=== PATIENT | female | born 1985 | race Caucasian/White ===

== ENCOUNTER 2023-07-27 10:50 | Inpatient (IN) | payer OTHER ==
[2023-07-27] MEDS: ELECTROLYTE-148 SOLN 500 ML IV ONE (11:30)
[2023-07-27] MEDS: ELECTROLYTE-148 SOLN 1,000 ML IV SCH (12:20)
[2023-07-27 13:02] VITALS: BMI 29.7
[2023-07-27] MEDS ORDERED: OXYTOCIN 30 UNITS in 0.9% NS 30 UNIT/500 ML INFUS.BAG IVPB ONE (13:44)
[2023-07-27] MEDS ORDERED: PHENYLEPHRINE HCL 10 MG/1 ML SINGLE DOSE VIAL ONE (13:45)
[2023-07-27] MEDS ORDERED: FENTANYL CITRATE/PF 50 MCG/ML VIAL ONE (13:45)
[2023-07-27] MEDS ORDERED: morphine SULFATE/PF 1 MG/2 ML (2cc Syringe - QUVA) ONE (13:45)
[2023-07-27] MEDS: CITRIC ACID/SODIUM CITRATE 30 ML UNIT-DOSE CUP PO ONE (13:45)
[2023-07-27] MEDS ORDERED: METOCLOPRAMIDE HCL INJECTION 10 MG/2 ML VIAL ONE (13:45)
[2023-07-27] MEDS ORDERED: ONDANSETRON 4 MG/2 ML VIAL ONE (13:45)
[2023-07-27] MEDS ORDERED: DEXAMETHASONE SOD PHOSPHATE 4 MG/1 ML VIAL ONE (13:45)
[2023-07-27] MEDS ORDERED: ceFAZolin SODIUM 1 GM VIAL ONE (13:45)
[2023-07-27] MEDS: morphine SULFATE/PF 1 MG/2 ML (2cc Syringe - QUVA) IT ONE (14:08)
[2023-07-27] MEDS ORDERED: KETOROLAC TROMETHAMINE 30 MG/1 ML VIAL ONE (14:41)
[2023-07-27] MEDS ORDERED: OXYTOCIN 20 UNITS in 0.9% NS 20 UNIT/1,000 ML INFUS.BAG IV ONE ×2 (15:25→17:25)
[2023-07-27] MEDS: OXYTOCIN 20 UNITS in 0.9% NS 20 UNIT/1,000 ML INFUS.BAG IV SCH (15:27)
[2023-07-27] MEDS ORDERED: METHYLERGONOVINE MALEATE 0.2 MG/1 ML AMP IM PRN (15:29)
[2023-07-27] MEDS ORDERED: ONDANSETRON 4 MG/2 ML VIAL IVPUSH PRN (15:32)
[2023-07-27] MEDS ORDERED: IBUPROFEN 800 MG/8 ML IJ IVPB ONE (17:24)
[2023-07-27] MEDS: IBUPROFEN 800 MG/8 ML IJ IVPB PRN (17:32)
[2023-07-27] MEDS: CLOTRIMAZOLE 1% CREAM TP SCH (22:15)
[2023-07-28] MEDS ORDERED: oxyCODONE HCL 5 MG TABLET PO PRN ×2 (03:29)
[2023-07-28] MEDS: ACETAMINOPHEN 325 MG TABLET (FP) PO PRN (06:10)
[2023-07-28 06:55] LABS: BASO % 0.3 % (0-2.0); EOS % 0.1 % (0-4.5); HEMATOCRIT 30.3 % (32.4-45.2); LYMPH % 21.2 % (8-40); MCH 28.3 pg (25.7-33.7); MCHC 32.9 g/dl (32.0-36.0); MEAN PLT VOLUME 8.8 fl (7.5-11.1); MONO % 6.6 % (3.8-10.2); NEUT % 71.8 % (42.8-82.8); PLATELET COUNT 227 10^3/uL (134-434); RBC 3.52 M/mm3 (3.60-5.2); RDW 14.8 % (11.6-15.6); WHITE BLOOD COUNT 8.3 K/mm3 (4.0-10.0)
[2023-07-28] MEDS: SERTRALINE HCL 50 MG TABLET (FP) PO SCH (08:14)
[2023-07-28] MEDS: FERROUS SO4 325 MG TABLET (FP) PO SCH (10:10)
[2023-07-28] MEDS: PRENATAL VITAMINS W/ FOLIC ACID TABLET (FP) PO SCH (10:10)
[2023-07-28] MEDS: IBUPROFEN 600 MG TABLET (FP) PO PRN (12:45)
[2023-07-28] MEDS: SIMETHICONE 80 MG TAB.CHEW (FP) PO PRN (12:45)
[2023-07-28] MEDS ORDERED: BISACODYL 10 MG SUPP.RECT RC PRN (15:29)
[2023-07-28] MEDS: SENNOSIDES/DOCUSATE COMBO (SENNA PLUS) TABLET (UD) PO PRN (21:09)
[2023-07-30 12:24] VITALS: BP 109/67; PULSE 78; RESP 17; TEMP 97.8
== END 2023-07-30 15:00 | disposition home or self-care (01) | DRG 540 ==
LOC: JLDR 10:50 → J3W 17:55
PROVIDERS: ADMIT Obstetrics & Gynecology; ATTEND Obstetrics & Gynecology
PROC: 10D00Z1 Extraction of Products of Conception, Low, Open Approach (ICD-10-PCS; principal; 2023-07-27)
PROC: 0UB70ZZ Excision of Bilateral Fallopian Tubes, Open Approach (ICD-10-PCS; 2023-07-27)
DX: O34.219 Maternal care for unspecified type scar from previous cesarean delivery (principal); Z3A.39 39 weeks gestation of pregnancy; Z37.0 Single live birth; Z30.2 Encounter for sterilization
CPT/HCPCS: 36415; 80053; 85025; 85610; 85730; 86780; 86850; 86900; 86901; 87389; 88305-TC; 88307-TC; 94010